=== PATIENT | female | born 1960 | race Caucasian/White ===

== ENCOUNTER → 2018-11-29 07:34 | Outpatient (CLI) | payer BC, SELFPAY ==
--- NOTE | 2018-11-29 | DI.MG.S_ITS ---
BILATERAL DIGITAL SCREENING MAMMOGRAM 3D/2D WITH CAD: 11/29/2018 CLINICAL: Routine screening. Comparison is made to exams dated: 11/08/2014 mammogram - [facility], 09/06/2013 mammogram, and 04/26/2012 mammogram - [facility]. There are scattered fibroglandular elements in both breasts. Current study was also evaluated with a Computer Aided Detection (CAD) system. No significant masses, calcifications, or other findings are seen in either breast. There has been no significant interval change. IMPRESSION: NEGATIVE There is no mammographic evidence of malignancy. A 1 year screening mammogram is recommended. This exam was interpreted at Station ID: [id number]. NOTE: For mammograms, a report in lay terms will be sent to the patient. Approximately 15% of breast malignancies will not be visualized mammographically. In the management of a palpable breast mass, a negative mammogram must not discourage biopsy of a clinically suspicious lesion. Electronically Signed By: Marcello luque/estee:11/29/2018 19:40:13 letter sent: Normal Exam ACR BI-RADS Category 1: Negative 3341F
== END ==
PROVIDERS: PCP Internal Medicine; Visit Provider Internal Medicine
DX: Z12.31 Encounter for screening mammogram for malignant neoplasm of breast (principal)
CPT/HCPCS: 77063; 77067

== ENCOUNTER → 2019-03-13 07:07 | Outpatient (CLI) | payer BC, SELFPAY ==
[2019-03-13 07:56] LABS: Add Manual Diff / Slide Review NO; Basophils Absolute Auto 100 /uL (0-100); Basophils Percent Auto 1.2 % (0-2); Eosinophils Absolute Auto 100 /uL (0-450); Eosinophils Percent Auto 1.5 % (2-4); Hematocrit 45.2 % (36-46); Hemoglobin 15.3 g/dL (12.0-16.0); Lymphocytes Absolute Auto 1600 /uL (1100-4500); Lymphocytes Percent Auto 34.3 % (25-40); Mean Corpuscular HGB Conc 33.9 % (30-36); Mean Corpuscular Hemoglobin 30.1 PG (26-34); Mean Corpuscular Volume 88.7 fL (80-100); Monocytes Absolute Auto 300 /uL (0-900); Monocytes Percent Auto 7.1 % (3-14); Neutrophils Absolute Auto 2700 /uL (1500-7000); Neutrophils Percent Auto 55.9 % (50-75); Platelet Count 280 X10^3/uL (150-400); Red Cell Distribution Width 13.6 % (11.6-14.8); White Blood Cell Count 4.8 X10^3/uL (4.5-11.0)
[2019-03-13 08:01] LABS: Hemoglobin A1C% w Est Avg Glu 5.8 % (4.0-6.0)
[2019-03-13 08:21] LABS: HEMOLYSIS < 15 (0-50); Iron 119 ug/dL (37-170)
[2019-03-13 08:23] LABS: Alanine Aminotransferase 41 IU/L (<35); Albumin 4.4 g/dL (3.5-5.0); Albumin Globulin Ratio 1.7 (1.0-2.8); Alkaline Phosphatase 84 U/L (38-126); Aspartate Aminotransferase 30 IU/L (14-36); Bilirubin Total 0.6 mg/dL (0.2-1.3); Blood Urea Nitrogen 14 mg/dL (7-17); Calcium 9.8 mg/dL (8.4-10.2); Carbon Dioxide 33 mmol/L (22-32); Chloride 102 mmol/L (98-107); Estimated Glomerular Filt Rate 56.6 mL/min (>60); Globulin 2.6 g/dL (1.7-4.1); Glucose 105 mg/dL (80-110); HDL Cholesterol 82 mg/dL (40-60); HEMOLYSIS < 15 (0-50); Potassium 4.7 mmol/L (3.4-5.1); Sodium 141 mmol/L (137-145); Triglycerides 119 mg/dL (35-150)
[2019-03-13 08:32] LABS: Percent Iron Saturation 40 % (15-50); Total Iron Binding Capacity 296 ug/dL (265-497); Transferrin 248 mg/dL (206-381)
[2019-03-13 08:36] LABS: Cholesterol 182 mg/dL (140-199); LDL Cholesterol Calculated 76 mg/dL (<100)
[2019-03-13 08:53] LABS: Thyroid Stimulating Hormone 1.94 uIU/mL (0.47-4.68)
[2019-03-13 09:28] LABS: Folate > 20.0 ng/mL (2.76-20.0); Vitamin B12 852 pg/mL (239-931)
[2019-03-18 07:04] LABS: Vitamin B1 191 nmol/L (78-185)
== END ==
PROVIDERS: Family Provider Internal Medicine; PCP Internal Medicine; Visit Provider Nurse Practitioner Acute Care
DX: E63.9 Nutritional deficiency, unspecified (principal); K90.9 Intestinal malabsorption, unspecified; Z98.84 Bariatric surgery status
CPT/HCPCS: 36415; 80053; 80061; 82306; 82607; 82728; 82746; 83036; 83525; 83540; 83550; 84425; 84443; 85025

== ENCOUNTER → 2019-11-10 08:15 | Outpatient (CLI) | payer BC, SELFPAY ==
[2019-11-10 09:37] LABS: Alanine Aminotransferase 20 IU/L (<35); Albumin 4.1 g/dL (3.5-5.0); Albumin Globulin Ratio 1.6 (1.0-2.8); Alkaline Phosphatase 77 U/L (38-126); Aspartate Aminotransferase 26 IU/L (14-36); BUN Creatinine Ratio 15.8 (6-22); Bilirubin Total 0.6 mg/dL (0.2-1.3); Blood Urea Nitrogen 16 mg/dL (7-17); Calcium 9.2 mg/dL (8.4-10.2); Carbon Dioxide 33 mmol/L (22-32); Chloride 101 mmol/L (98-107); Cholesterol 165 mg/dL (140-199); Estimated Glomerular Filt Rate 55.9 mL/min (>60); Globulin 2.6 g/dL (1.7-4.1); Glucose 93 mg/dL (80-110); HDL Cholesterol 70 mg/dL (40-60); HEMOLYSIS < 15 (0-50); LDL Cholesterol Calculated 77 mg/dL (<100); Sodium 137 mmol/L (137-145); Total Protein 6.7 g/dL (6.3-8.2); Triglycerides 92 mg/dL (35-150)
[2019-11-10 09:39] LABS: Hemoglobin A1C% w Est Avg Glu 6.2 % (4.0-6.0)
[2019-11-10 10:19] LABS: TSH w/ Reflex to FT4 1.29 uIU/mL (0.47-4.68)
[2019-11-10 10:27] LABS: Creatinine Urine Random 205.2 mg/dL
[2019-11-10 10:31] LABS: Microalbumi Creatinin Ratio Ur 4.3 ug/mg CR (<30); Microalbumin Urine Random 0.9 mg/dL (0-1.6)
== END ==
PROVIDERS: Family Provider Internal Medicine; PCP Family Medicine; Referring Provider Registered Nurse; Visit Provider Registered Nurse
DX: E11.9 Type 2 diabetes mellitus without complications (principal); E78.5 Hyperlipidemia, unspecified; E03.9 Hypothyroidism, unspecified
CPT/HCPCS: 36415; 80053; 80061; 82043; 82570; 83036; 84443

== ENCOUNTER → 2019-12-08 07:53 | Outpatient (CLI) | payer BC, SELFPAY ==
--- NOTE | 2019-12-08 | DI.MG.S_ITS ---
BILATERAL DIGITAL SCREENING MAMMOGRAM 3D/2D WITH CAD: 12/08/2019 CLINICAL: Routine screening. Comparison is made to exams dated: 11/29/2018 mammogram, 11/08/2014 mammogram - [facility], and 09/06/2013 mammogram - [facility]. There are scattered fibroglandular elements in both breasts. Current study was also evaluated with a Computer Aided Detection (CAD) system. No significant masses, calcifications, or other findings are seen in either breast. There has been no significant interval change. IMPRESSION: NEGATIVE There is no mammographic evidence of malignancy. A 1 year screening mammogram is recommended. This exam was interpreted at Station ID: [id number]. NOTE: For mammograms, a report in lay terms will be sent to the patient. Approximately 15% of breast malignancies will not be visualized mammographically. In the management of a palpable breast mass, a negative mammogram must not discourage biopsy of a clinically suspicious lesion. Electronically Signed By: Silviano ramirez/estee:12/10/2019 07:24:19 letter sent: Normal Exam ACR BI-RADS Category 1: Negative 3341F
== END ==
PROVIDERS: Family Provider Internal Medicine; PCP Family Medicine; Referring Provider Family Medicine; Visit Provider Family Medicine
DX: Z12.31 Encounter for screening mammogram for malignant neoplasm of breast (principal)
CPT/HCPCS: 77063; 77067

== ENCOUNTER → 2020-05-28 12:09 | Outpatient (CLI) | payer OTHER, SELFPAY ==
[2020-05-28] MEDS: COVID-19 VACC, Ad26(JANSSEN)/PF 0.5 ML IM (12:32)
== END ==
PROVIDERS: Family Provider Internal Medicine; PCP Family Medicine; Visit Provider Internal Medicine
DX: Z23 Encounter for immunization (principal)
CPT/HCPCS: 0031A; 91303

== ENCOUNTER → 2020-11-05 07:48 | Outpatient (CLI) | payer OTHER, SELFPAY ==
[2020-11-05 08:39] LABS: Alanine Aminotransferase 20 IU/L (<35); Albumin 4.1 g/dL (3.5-5.0); Albumin Globulin Ratio 1.4 (1.0-2.8); Alkaline Phosphatase 101 U/L (38-126); Aspartate Aminotransferase 26 IU/L (14-36); BUN Creatinine Ratio 16.5 (6-22); Bilirubin Total 0.5 mg/dL (0.2-1.3); Blood Urea Nitrogen 16 mg/dL (7-17); Calcium 9.5 mg/dL (8.4-10.2); Carbon Dioxide 31 mmol/L (22-32); Chloride 104 mmol/L (98-107); Cholesterol 205 mg/dL (140-199); Estimated Glomerular Filt Rate 58.4 mL/min (>60); Globulin 2.9 g/dL (1.7-4.1); Glucose 115 mg/dL (80-110); HDL Cholesterol 78 mg/dL (40-60); HEMOLYSIS < 15 (0-50); LDL Cholesterol Calculated 92 mg/dL (<100); Potassium 4.5 mmol/L (3.4-5.1); Sodium 139 mmol/L (137-145); Triglycerides 174 mg/dL (35-150)
[2020-11-05 08:45] LABS: Hemoglobin A1C% w Est Avg Glu 6.1 % (4.0-6.0)
[2020-11-05 09:04] LABS: Creatinine Urine Random 200.9 mg/dL
[2020-11-05 09:08] LABS: Microalbumi Creatinin Ratio Ur 6.4 ug/mg CR (<30); Microalbumin Urine Random 1.3 mg/dL (0-1.6)
[2020-11-05 09:33] LABS: Thyroid Stimulating Hormone 1.93 uIU/mL (0.47-4.68)
== END ==
PROVIDERS: Family Provider Internal Medicine; PCP Family Medicine; Referring Provider Registered Nurse; Visit Provider Registered Nurse
DX: E03.9 Hypothyroidism, unspecified (principal); E11.9 Type 2 diabetes mellitus without complications; E78.5 Hyperlipidemia, unspecified; N18.30 Chronic kidney disease, stage 3 unspecified
CPT/HCPCS: 36415; 80053; 80061; 82043; 82570; 83036; 84443

== ENCOUNTER → 2020-11-20 15:45 | Outpatient (CLI) | payer OTHER, SELFPAY ==
--- NOTE | 2020-11-20 17:25 | DIAB.MNT ---
Initial Diabetes Medical Nutrition Therapy Assessment Name: Kimberly Bates Date: 11/20/20 Time: 400-172p Dx: Type II Diabetes Provider: Brenna Koroma Preferred Learning Style: watching, hands-on/doing PMH: GERD, CKD III, Acquired hypothyroidism, HLD, T2DM, sleeve weight loss elliott Harris reports PMH of T2DM for 20 years. No DM medications. h/o SE with Metformin. Recent HgA1c indicates well managed BG, 6.1%. Elevated cholesterol last labs, but high HDL as well. LDL has increased over last few labs. Reports elevated blood pressure recently, 130-150 over 80s. Also decline in GFR in recent years, though improved per last labs. Reports she is concerned about increase in cholesterol and does not want to start on a statin. States she would like more information about nutrition for kidneys and heart health. Reports +20# over the last year and a half with covid. Seems mostly related to more snacks in the house, less cooking, and less physical activity. H/o sleeve in Feb 2018 which resulted originally in a 116# loss, regain 20#. States finances are a concern in terms of affording healthy foods. States she finds healthy foods are more expensive. Diet Recall: 530a: coffee with milk and hersheys keli 930a: atkins protein bar 1230p: 1/3c [employer] crab salad with rice seasoning and 10 grapes 3p: 3/4c smart pop and 1 small cucumber 530-7p: mod pizza 1.5 slices Beverages: 32oz water, 2c coffee Eating out: 1-2 x per week Anthropometrics Ht: 68 Wt: 205# reported (preferred reported weight 175-185#) Physical Activity: Prior to pandemic, was walking 6 days per week + other activities (kayaking, gardening). One barrier was losing her walking partner to a busy schedule and friend's family obligations. Has restarted walking since friend retired recently. Does not like the gym. Does not want to walk once the sun goes down. Daughter bought her resistance bands. Diabetes Medications: None; taking supplements for sleeve Pertinent Labs: HgA1c: 6.1% Total cholesterol: 205 H LDL: 92 HDL: 78 Self-Monitoring Blood Glucose: Normally checks 1-2 x per month. Checked more often prior to this visit. All in goal ranging from 98-124 mg/dL fasting. Nutrition Rx: Sodium <2300 mg daily ; fiber: 25-40g daily ; fluids: 48-64oz daily Nutrition Diagnosis: - Inadequate fiber intake r/t nutrition knowledge deficit and low carb diet aeb diet recall and pt report - inadequate fluid intake r/t nutrition knowledge deficit aeb diet recall and pt report - Excessive sodium intake r/t eating out and broth choices aeb diet recall Intervention: This participant was very receptive. Provided appropriate educational handouts. Discussed the following topics: Completed intake assessment. Discussed barriers to care. HgA1c, its correlation to blood glucose numbers, and rationale for goal Heart health nutrition: impact of fiber on cholesterol, fat types, recs on fiber, sodium impact on BP Kidney health nutrition: fluid recs, sodium recs and impact on BP Role of physical activity and plan to sustain/increase Created SMART goals for patient self-care and success. Goals: - Choose low sodium broth - Walk twice per week with friend 75-90 mins ea - Try resistance bands 2 x per week - Increase water to 3 bottles per day Follow-up: CASSANDRA NIXON follow-up in 1 month Courtney Ambrocio RDN, EDUARES Certified Diabetes Care and Water Resources Business Segment Leader P: [phone] Thank you for this referral
== END ==
PROVIDERS: Family Provider Internal Medicine; PCP Family Medicine; Referring Provider Registered Nurse; Visit Provider Registered Nurse
DX: E11.9 Type 2 diabetes mellitus without complications (principal); K21.9 Gastro-esophageal reflux disease without esophagitis; N18.30 Chronic kidney disease, stage 3 unspecified; E03.9 Hypothyroidism, unspecified; E78.5 Hyperlipidemia, unspecified; Z79.84 Long term (current) use of oral hypoglycemic drugs; Z90.3 Acquired absence of stomach [part of]; Z71.3 Dietary counseling and surveillance; Z68.31 Body mass index [BMI] 31.0-31.9, adult
CPT/HCPCS: 97802

== ENCOUNTER → 2020-12-09 16:12 | Outpatient (CLI) | payer OTHER, SELFPAY ==
--- NOTE | 2020-12-09 | DI.MG.S_ITS ---
BILATERAL DIGITAL SCREENING MAMMOGRAM 3D/2D WITH CAD: 12/09/2020 CLINICAL: Routine screening. Comparison is made to exams dated: 12/08/2019 mammogram, 11/29/2018 mammogram, and 11/08/2014 mammogram - [facility]. There are scattered fibroglandular elements in both breasts. Current study was also evaluated with a Computer Aided Detection (CAD) system. No significant masses, calcifications, or other findings are seen in either breast. There has been no significant interval change. IMPRESSION: NEGATIVE There is no mammographic evidence of malignancy. A 1 year screening mammogram is recommended. This exam was interpreted at Station ID: [id number]. NOTE: For mammograms, a report in lay terms will be sent to the patient. Approximately 15% of breast malignancies will not be visualized mammographically. In the management of a palpable breast mass, a negative mammogram must not discourage biopsy of a clinically suspicious lesion. Electronically Signed By: Diego Doty M.D., jr/estee:12/09/2020 16:41:17 letter sent: Normal Exam ACR BI-RADS Category 1: Negative 3341F
== END ==
PROVIDERS: Family Provider Internal Medicine; PCP Family Medicine; Referring Provider Family Medicine; Visit Provider Family Medicine
DX: Z12.31 Encounter for screening mammogram for malignant neoplasm of breast (principal)
CPT/HCPCS: 77063; 77067

== ENCOUNTER → 2020-12-24 15:20 | Outpatient (CLI) | payer OTHER, SELFPAY ==
--- NOTE | 2020-12-24 16:44 | DIAB.MNTFU ---
Follow-up Diabetes Medical Nutrition Therapy Name: Kimberly Bates Date: 12/24/20 Time: 330-430p Dx: Type II Diabetes Provider: Brenna Koroma Preferred Learning Style: watching, hands-on/doing PMH: GERD, CKD III, Acquired hypothyroidism, HLD, T2DM x 20 years (no DM meds), sleeve weight loss sx States she is here mostly for accountability. Working on weight loss to help with DM, HTN, and cholesterol. Has been working on increasing fiber intake with ground flax. Also working on more water. Diet is low in carb (often <100g CHO). This tends to lead to high protein or fat intake and low fiber intake. In general, Kimberly's portions are small. Reports some MyFitnesspal tracking, which indicated low protein (<70g), 20g fiber, and some higher fat intake. Sodium was estimated <2300mg per her report. Has been choosing lower sodium options. Endorses 2 vegetables and 1-2 fruits per day. Today she tells me she had two wins. 1. She lost 4# and 2. She fits into a shirt from the Diet recall: 530:Coffee and milk 10a:egg bite with spinach Or atkins bar Or yogurt with fruit and flax 230p: Cheese, vegetables and yogurt dip Or left over quesadilla x 1-2 pieces 6p: leftovers or baked chicken thighs x 1-2 Eating out: 1-2 x per week, leftovers last several meals Beverages: 40oz water, 2c coffee, 1c milk Anthropometrics Ht: 68 Wt: 201# reported (preferred reported weight 175-185#) Last wt: 205# reported Physical Activity: Prior to pandemic, was walking 6 days per week + other activities (kayaking, gardening). Now hiking one day per week with her friend for 60-90 mins. Walking on her own one day per week. Ranging 10,000-20,000 steps per day. Implemented resistance band training for UE and LE with help of her daughter twice per week. Diabetes Medications: None; taking supplements for sleeve Pertinent Labs: HgA1c: 6.1% Total cholesterol: 205 H LDL: 92 HDL: 78 Self-Monitoring Blood Glucose: Normally checks 1-2 x per month. Recent fastings are 95-122 mg/dL, in goal. States she likes to be under 100 mg/dL. Has questions about why a reading may be completely different when testing a different finger at the same time. Nutrition Rx: Sodium <2300 mg daily ; fiber: 25-40g daily ; fluids: 48-64oz daily Nutrition Diagnosis: - Inadequate fiber intake r/t nutrition knowledge deficit and low carb diet aeb diet recall and pt report- in progress/improved - inadequate fluid intake r/t nutrition knowledge deficit aeb diet recall and pt report- improved - Excessive sodium intake r/t eating out and broth choices aeb diet recall- improved - Excessive fat intake r/t lower protein and fat intake aeb tracking char- new Intervention: This participant was very receptive. Provided appropriate educational handouts. Discussed the following topics: Impact of changes to her weight how she is feeling about the sustainability of her phys activity program currently set point theory on how weight can be difficult, not impossible, to change. Tools to continue lifestyle changes. impact of activity, fat, and sodium on heart health sodium in food choices reported fibers recs variability of meters increasing lean protein intake wins Goals: - Choose low sodium broth- met - Walk twice per week with friend 75-90 mins ea- met - Try resistance bands 2 x per week- met - Increase water to 3 bottles per day- improved - Continue walking 2 x per week - Continue resistance exercises 2 x per week - Slowly increase flax intake (but stay hydrated) Follow-up: CASSANDRA NIXON follow-up in 1 month Courtney Ambrocio RDN, TIFFANI Certified Diabetes Care and Structural Layout Worker P: [phone] Thank you for this referral
== END ==
PROVIDERS: Family Provider Internal Medicine; PCP Family Medicine; Referring Provider Registered Nurse; Visit Provider Registered Nurse
DX: E11.9 Type 2 diabetes mellitus without complications (principal); I10 Essential (primary) hypertension; E78.5 Hyperlipidemia, unspecified; Z71.3 Dietary counseling and surveillance
CPT/HCPCS: 97803

== ENCOUNTER → 2021-01-21 15:16 | Outpatient (CLI) | payer OTHER, SELFPAY ==
--- NOTE | 2021-01-22 17:09 | DIAB.MNTFU ---
Follow-up Diabetes Medical Nutrition Therapy Name: Kimberly Bates Date: 01/21/21 Time: 330-425p Dx: Type II Diabetes Provider: Brenna Koroma PMH: GERD, CKD III, Acquired hypothyroidism, HLD, T2DM x 20 years (no DM meds), sleeve weight loss sx States she is here mostly for accountability. Working on weight loss to help with DM, HTN, and cholesterol. Reports her son was just and she spent a week out of town. This resulted in mostly eating out. States she tried to make informed choices, ie eggs, yogurt, fruit, salads, fish. Overall, seems to have done well. Has increased fiber with success, though reports some constipation a few times since last visit. Tries to increase water and use less flaxseed when that occurs. Easily remedied per her report. Continues eating three times per day, staying well hydrated, conscious of Na intake. Continues tracking food intake. Anthropometrics Ht: 68 Wt: 200# today Last wt: 201# Physical Activity: Walking 60 min twice per week. getting 10,000 steps per day. Hiking on weekends. Resistance bands with daughter via zoom twice per week. Does not feel proficient in exercises, but continues trying. Diabetes Medications: None; taking supplements for sleeve Pertinent Labs: HgA1c: 6.1% Total cholesterol: 205 H LDL: 92 HDL: 78 Self-Monitoring Blood Glucose: Normally checks 1-2 x per month. Fastings <130 mg/dL. She prefers them <100 mg/dL. Nutrition Rx: Sodium <2300 mg daily ; fiber: 25-40g daily ; fluids: 48-64oz daily; plate method Nutrition Diagnosis: - Inadequate fiber intake r/t nutrition knowledge deficit and low carb diet aeb diet recall and pt report- improved - Excessive sodium intake r/t eating out and broth choices aeb diet recall- improved - Excessive fat intake r/t lower protein and fat intake aeb tracking char- in progress Intervention: This participant was very receptive. Provided appropriate educational handouts. Discussed the following topics: Eating out and aiming to sustaining weight over vacations and holidays as a win BM and fiber, fluids, phys activity Snack ideas Resistance band form/ideas Goals: - Continue walking 2 x per week- met - Continue resistance exercises 2 x per week- met - Slowly increase flax intake (but stay hydrated)- met Follow-up: CASSANDRA NIXON follow-up in March 2021 Courtney Ambrocio RDN, [facility] Certified Diabetes Care and Associate Professor Of History P: [phone] Thank you for this referral
== END ==
PROVIDERS: Family Provider Internal Medicine; PCP Family Medicine; Referring Provider Family Medicine; Visit Provider Family Medicine
DX: E11.9 Type 2 diabetes mellitus without complications (principal); I10 Essential (primary) hypertension; Z71.3 Dietary counseling and surveillance
CPT/HCPCS: 97803

== ENCOUNTER → 2021-04-22 15:13 | Outpatient (CLI) | payer OTHER, SELFPAY ==
--- NOTE | 2021-04-23 10:14 | DIAB.MNTFU ---
Follow-up Diabetes Medical Nutrition Therapy Assessment Name: Kimberly Bates Date: 04/22/21 Time: 325-415p Dx: Type II Diabetes Kimberly presents today for follow-up. States her blood sugars cont in goal. She cont to work on weight loss. Endorses feeling as though her nutrition is out of wack. Reports higher intake of chips more recently. Still counting kcals and watching food portions. Made efforts in reducing Na, ie low Na nuts. Slight changes in the scale, but feeling as though her pants are tight. Having difficulty with sleep recently. d/c'd coffee after noon. Often will wake and if cannot sleep, watches TV. Friends suggesting melatonin, but she is weary of any sleep assistance in pill form. Feeling isolated with covid, though does have dinner with friends and sees [employer] [facility] regularly. Due for new labs with PCP, but states insurance will not cover them-- financial concerns. Reports speaking with PCP office about this previously but no resolution at the time. Anthropometrics: Wt: 202# reported Weight history: 200# reported last visit Physical Activity: 10,000 steps daily. hiking on weekends. Plans for half marathon in May. Plans to hike [employer] one weekend. Interested in yoga, but she has never done it before. Feels uncomfortable going to a studio. Self-Monitoring Blood Glucose: Reports 98-105 FBG, in range. Diabetes Medications: None Pertinent Labs: 10/2020 GFR: 58 L HgA1c: 6.1% T H Cholesterol: 205 H HDL: 78 LDL: 92 Nutrition Rx: Sodium <2300 mg daily ; fiber: 25-40g daily ; fluids: 48-64oz daily; plate method Nutrition Diagnosis: - Predicted excessive sat fat/sodium intake potentially r/t increase in chip intake aeb pt report Intervention: This participant was very receptive. Provided appropriate educational handouts. Discussed the following topics: Nutrition recs and current intake grocery store tips and psychology Impact mary kate has on feeling isolated, current strategies to avoid feeling alone Link between sleep, nutrition, weight, and BG Strategies for relaxation Online resources for yoga Plan for PCP visit and lipid panel Created SMART goals for patient self-care and success. Goals: Call PCP office to discuss barrier and financial concerns Try online yoga Try relaxation tech discussed, muscle relaxation and breathing Follow-up: CASSANDRA NIXON follow-up in 6-8 weeks Courtney Ambrocio RDN, TIFFANI Certified Diabetes Care and Art Dealer P: [phone] Thank you for this referral
== END ==
PROVIDERS: Family Provider Internal Medicine; PCP Family Medicine; Referring Provider Family Medicine; Visit Provider Family Medicine
DX: E11.9 Type 2 diabetes mellitus without complications (principal)
CPT/HCPCS: 97803

== ENCOUNTER → 2021-07-01 15:20 | Outpatient (CLI) | payer OTHER, SELFPAY ==
--- NOTE | 2021-07-02 13:04 | DIAB.MNTFU ---
Follow-up Diabetes Medical Nutrition Therapy Assessment Name: Kimberly Bates Date: 07/01/21 Time: 330-440p Dx: Type II Diabetes, weight management Rupa presents today for nutrition follow-up. States she has had a very tough time lately with mental health. This month is the anniversary of her dad's passing, a friend's passing, and currently her brother has cancer. To manage mental health, she has been gardening q morning, which she feels helps. Nutrition seems to be going well. She has been trying new recipes, ie breakfast cookies, chicken soup. Fluids 40-50oz + coffee. Sleep has improved. Anthropometrics: Wt: 202# no change per report Physical Activity: Gardening daily. Hiking with friend 2x per week Self-Monitoring Blood Glucose: Cont in goal. FBG 90-106 mg/dL Diabetes Medications: None Pertinent Labs: Due for labs, but finances are a concern 10/2020 GFR: 58 L HgA1c: 6.1% T H Cholesterol: 205 H HDL: 78 LDL: 92 Nutrition Rx: Sodium <2300 mg daily ; fiber: 25-40g daily ; fluids: 48-64oz daily; plate method Nutrition Diagnosis: - Predicted excessive sat fat/sodium intake potentially r/t increase in chip intake aeb pt report- improved Intervention: This participant was very receptive. Provided appropriate educational handouts. Discussed the following topics: Physical activity plan and progress Mental health and nutrition and phys activity Recent BG and goal Fluid goal and CKD Sodium intake and recs Barriers to new labs and plan Created SMART goals for patient self-care and success. Goals: Call PCP office to discuss barrier and financial concerns- in progress Try online yoga- not met Try relaxation tech discussed, muscle relaxation and breathing- not met See new PCP and discuss getting new labs- new Follow-up: CASSANDRA NIXON follow-up in 2 months per her request Courtney Ambrocio RDN, TIFFANI Certified Diabetes Care and Screw Driver Operator P: [phone] Thank you for this referral
== END ==
PROVIDERS: Family Provider Internal Medicine; PCP Family Medicine; Referring Provider Family Medicine; Visit Provider Family Medicine
DX: E11.9 Type 2 diabetes mellitus without complications (principal); Z71.3 Dietary counseling and surveillance
CPT/HCPCS: 97803

== ENCOUNTER → 2021-10-21 09:23 | Outpatient (CLI) | payer OTHER, SELFPAY ==
--- NOTE | 2021-10-22 17:49 | DIAB.MNTFU ---
Follow-up Diabetes Medical Nutrition Therapy Assessment Name: Kimberly Bates Date: 10/22/21 Time: 177-0112g Dx: Type II Diabetes Rupa presents for T2DM follow-up. States she has been perfecting her breakfast cookie recipe, fruit, nuts, PB, and now added flax for additional fiber intake. She has also recently purchased an air fryer, however she is having difficulty with tasting and smelling since being ill in August. Tested negative for Covid but lost senses. Interested in some visually appealing recipes with good texture since she is unable to smell or taste well. Has been focusing on increasing water intake. Worries about kidney health. Current intake: 24-30oz water and 24-30oz tea unsweet Has not completed new labs due to financial concerns. Plans to see provider's office today to discuss. Anthropometrics: Wt: 196# reported Weight history: last wt reported 202#; wt loss may be r/t August illness and loss of taste. Physical Activity: hiking twice per week, walking twice per week, more kayaking recently. Self-Monitoring Blood Glucose: All FBG in goal with 7 day avg at 96 mg/dL. Recent readings: 96, 108, 112, 104, 99, 107, 100, 95, 112, 107, 103 Diabetes Medications: None Pertinent Labs: Due for labs, but finances are a concern 10/2020 GFR: 58 L HgA1c: 6.1% T H Cholesterol: 205 H HDL: 78 LDL: 92 Nutrition Rx: Sodium <2300 mg daily ; fiber: 25-40g daily ; fluids: 48-64oz daily; plate method Nutrition Diagnosis: - Nutrition and food related knowledge deficit r/t needing additional ideas for lower carb meals that are appealing aeb pt report - Nutrition and food related knowledge deficit r/t kidney disease nutrition education deficits aeb pt report Intervention: This participant was very receptive. Provided appropriate educational handouts. Discussed the following topics: Blood sugar review Discussed a few recipe ideas, ie summer rolls Reviewed CKD nutrition in brief and labs correlating Fluid recs Physical activity plan and progress Created SMART goals for patient self-care and success. Goals: See new PCP and discuss getting new labs- in progress Try summer rolls- new Try air fryer recipes - new Aim for 45-60oz water, +tea- new Follow-up: RDN CDCES follow-up in 2 months per pt request Courtney Ambrocio RDN, TIFFANI Certified Diabetes Care and Cripple Worker P: [phone] Thank you for this referral
== END ==
PROVIDERS: Family Provider Internal Medicine; PCP Family Medicine; Referring Provider Family Medicine; Visit Provider Family Medicine
DX: E11.9 Type 2 diabetes mellitus without complications (principal)
CPT/HCPCS: 97803

== ENCOUNTER → 2021-12-17 15:57 | Outpatient (CLI) | payer OTHER, SELFPAY ==
--- NOTE | 2021-12-17 15:58 | DI.MG.S_ITS ---
BILATERAL DIGITAL SCREENING MAMMOGRAM 3D/2D WITH CAD: 12/17/2021 CLINICAL: Routine screening. Comparison is made to exams dated: 12/09/2020 mammogram, 12/08/2019 mammogram, and 11/29/2018 mammogram - [facility]. There are scattered areas of fibroglandular density in both breasts (category b / 25%-50% glandular tissue). Current study was also evaluated with a Computer Aided Detection (CAD) system. No significant masses, calcifications, or other findings are seen in either breast. There has been no significant interval change. IMPRESSION: NEGATIVE There is no mammographic evidence of malignancy. A 1 year screening mammogram is recommended. Based on the Tyrer Cuzick model (a risk assessment model) the patient's lifetime risk is 9.6% and her 10 year risk is 4.2%. According to the ACR, ACS, and NCCN guidelines, an annual breast MRI exam along with mammogram is recommended if the patient's lifetime risk is 20% or greater. This exam was interpreted at Station ID: [id number]. NOTE: For mammograms, a report in lay terms will be sent to the patient. Approximately 15% of breast malignancies will not be visualized mammographically. In the management of a palpable breast mass, a negative mammogram must not discourage biopsy of a clinically suspicious lesion. Electronically Signed By: Luis Daniel escobar/estee:12/17/2021 16:27:42 letter sent: Normal Exam ACR BI-RADS Category 1: Negative 3341F
== END ==
PROVIDERS: Family Provider Internal Medicine; PCP Family Medicine; Referring Provider Family Medicine; Visit Provider Family Medicine
DX: Z12.31 Encounter for screening mammogram for malignant neoplasm of breast (principal)
CPT/HCPCS: 77063; 77067

== ENCOUNTER → 2022-01-08 07:23 | Outpatient (CLI) | payer OTHER, SELFPAY ==
[2022-01-08 07:42] LABS: Add Manual Diff / Slide Review NO; Basophils Absolute Auto 0 /uL (0-100); Basophils Percent Auto 1.1 % (0-2); Eosinophils Absolute Auto 100 /uL (0-450); Eosinophils Percent Auto 2.2 % (2-4); Hematocrit 43.4 % (36-46); Lymphocytes Absolute Auto 1600 /uL (1100-4500); Lymphocytes Percent Auto 38.6 % (25-40); Mean Corpuscular HGB Conc 32.2 % (30-36); Mean Corpuscular Hemoglobin 28.7 PG (26-34); Monocytes Absolute Auto 300 /uL (0-900); Monocytes Percent Auto 8.1 % (3-14); Neutrophils Absolute Auto 2100 /uL (1500-7000); Platelet Count 282 X10^3/uL (150-400); Red Blood Cell Count 4.88 X10^6/uL (4.0-5.2); Red Cell Distribution Width 13.8 % (11.6-14.8); White Blood Cell Count 4.1 X10^3/uL (4.5-11.0)
[2022-01-08 07:55] LABS: Hemoglobin A1C% w Est Avg Glu 6.2 % (4.0-6.0)
[2022-01-08 08:10] LABS: Alanine Aminotransferase 24 IU/L (<35); Albumin 4.1 g/dL (3.5-5.0); Albumin Globulin Ratio 1.4 (1.0-2.8); Alkaline Phosphatase 91 U/L (38-126); Aspartate Aminotransferase 30 IU/L (14-36); BUN Creatinine Ratio 13.8 (6-22); Bilirubin Total 0.5 mg/dL (0.2-1.3); Blood Urea Nitrogen 13 mg/dL (7-17); Calcium 8.9 mg/dL (8.4-10.2); Carbon Dioxide 31 mmol/L (22-32); Chloride 102 mmol/L (98-107); Cholesterol 176 mg/dL (140-199); Estimated Glomerular Filt Rate > 60 mL/min (>60); Globulin 2.9 g/dL (1.7-4.1); Glucose 110 mg/dL (80-110); HDL Cholesterol 69 mg/dL (40-60); HEMOLYSIS 16 (0-50); LDL Cholesterol Calculated 88 mg/dL (<100); Potassium 4.1 mmol/L (3.4-5.1); Sodium 139 mmol/L (137-145); Triglycerides 96 mg/dL (35-150)
[2022-01-08 09:22] LABS: Free T3, Triiodothyronine Free 3.43 pg/mL (2.77-5.27); Free T4, Direct Thyroxine 1.14 ng/dL (0.78-2.19)
[2022-01-08 09:36] LABS: Thyroid Stimulating Hormone 2.07 uIU/mL (0.47-4.68)
== END ==
PROVIDERS: Family Provider Internal Medicine; PCP Family Medicine; Referring Provider Family Medicine; Visit Provider Family Medicine
DX: E03.9 Hypothyroidism, unspecified (principal); E11.9 Type 2 diabetes mellitus without complications; E78.2 Mixed hyperlipidemia
CPT/HCPCS: 36415; 80053; 80061; 83036; 84439; 84443; 84481; 85025

== ENCOUNTER → 2022-06-24 11:00 | Outpatient (CLI) | payer OTHER, SELFPAY ==
[2022-06-25 13:37] LABS: Fecal Immunochemical Test Negative (Negative)
== END ==
PROVIDERS: Family Provider Internal Medicine; PCP Family Medicine; Referring Provider Family Medicine; Visit Provider Family Medicine
DX: Z12.11 Encounter for screening for malignant neoplasm of colon (principal)
CPT/HCPCS: 82274

== ENCOUNTER → 2022-12-20 07:38 | Outpatient (CLI) | payer OTHER, SELFPAY ==
--- NOTE | 2022-12-20 | DI.MG.S_ITS ---
BILATERAL DIGITAL SCREENING MAMMOGRAM 3D/2D WITH CAD: 12/20/2022 CLINICAL: Routine screening. Comparison is made to exams dated: 12/17/2021 mammogram, 12/09/2020 mammogram, and 12/08/2019 mammogram - [facility]. There are scattered areas of fibroglandular density in both breasts (category b / 25%-50% glandular tissue). Current study was also evaluated with a Computer Aided Detection (CAD) system. No significant masses, calcifications, or other findings are seen in either breast. There has been no significant interval change. IMPRESSION: NEGATIVE There is no mammographic evidence of malignancy. A 1 year screening mammogram is recommended. Based on the Tyrer Cuzick model (a risk assessment model) the patient's lifetime risk is 9.3% and her 10 year risk is 4.2%. According to the ACR, ACS, and NCCN guidelines, an annual breast MRI exam along with mammogram is recommended if the patient's lifetime risk is 20% or greater. This exam was interpreted at Station ID: [id number]. NOTE: For mammograms, a report in lay terms will be sent to the patient. Approximately 15% of breast malignancies will not be visualized mammographically. In the management of a palpable breast mass, a negative mammogram must not discourage biopsy of a clinically suspicious lesion. Electronically Signed By: Joel chavis/estee:12/20/2022 10:03:57 letter sent: Normal Exam ACR BI-RADS Category 1: Negative 3341F
== END ==
PROVIDERS: Family Provider Internal Medicine; PCP Family Medicine; Referring Provider Family Medicine; Visit Provider Family Medicine
DX: Z12.31 Encounter for screening mammogram for malignant neoplasm of breast (principal)
CPT/HCPCS: 77063; 77067

== ENCOUNTER → 2022-12-25 08:04 | Outpatient (CLI) | payer OTHER, SELFPAY ==
[2022-12-25 08:28] LABS: Add Manual Diff / Slide Review NO; Basophils Absolute Auto 100 /uL (0-100); Basophils Percent Auto 1.3 % (0-2); Eosinophils Absolute Auto 100 /uL (0-450); Hematocrit 41.5 % (36-46); Lymphocytes Absolute Auto 1500 /uL (1100-4500); Lymphocytes Percent Auto 36.8 % (25-40); Mean Corpuscular HGB Conc 33.6 % (30-36); Mean Corpuscular Hemoglobin 30.1 PG (26-34); Mean Corpuscular Volume 89.6 fL (80-100); Monocytes Absolute Auto 300 /uL (0-900); Monocytes Percent Auto 8.1 % (3-14); Neutrophils Absolute Auto 2000 /uL (1500-7000); Neutrophils Percent Auto 50.8 % (50-75); Platelet Count 273 X10^3/uL (150-400); Red Blood Cell Count 4.64 X10^6/uL (4.0-5.2); Red Cell Distribution Width 14.1 % (11.6-14.8)
[2022-12-25 08:33] LABS: Hemoglobin A1C% w Est Avg Glu 6.1 % (4.0-6.0)
[2022-12-25 08:39] LABS: Alanine Aminotransferase 21 IU/L (<35); Albumin Globulin Ratio 1.4 (1.0-2.8); Alkaline Phosphatase 89 U/L (38-126); Aspartate Aminotransferase 25 IU/L (14-36); BUN Creatinine Ratio 18.3 (6-22); Bilirubin Total 0.5 mg/dL (0.2-1.3); Blood Urea Nitrogen 19 mg/dL (7-17); Calcium 9.1 mg/dL (8.4-10.2); Carbon Dioxide 28 mmol/L (22-32); Chloride 103 mmol/L (98-107); Cholesterol 190 mg/dL (140-199); Estimated Glomerular Filt Rate > 60 mL/min (>60); Globulin 2.9 g/dL (1.7-4.1); Glucose 115 mg/dL (80-110); HDL Cholesterol 78 mg/dL (40-60); HEMOLYSIS < 15 (0-50); LDL Cholesterol Calculated 92 mg/dL (<100); Sodium 138 mmol/L (137-145); Total Protein 6.9 g/dL (6.3-8.2); Triglycerides 98 mg/dL (35-150)
[2022-12-25 09:09] LABS: TSH w/ Reflex to FT4 1.45 uIU/mL (0.47-4.68)
[2022-12-25 09:18] LABS: Creatinine Urine Random 219.6 mg/dL
[2022-12-25 09:22] LABS: Microalbumin Urine Random 2.2 mg/dL (0-1.6)
== END ==
PROVIDERS: Family Provider Internal Medicine; PCP Family Medicine; Referring Provider Family Medicine; Visit Provider Family Medicine
DX: E78.2 Mixed hyperlipidemia (principal); E11.9 Type 2 diabetes mellitus without complications; E03.9 Hypothyroidism, unspecified; N18.31 Chronic kidney disease, stage 3a
CPT/HCPCS: 36415; 80053; 80061; 82043; 82570; 83036; 84443; 85025

== ENCOUNTER → 2023-03-30 15:07 | Outpatient (CLI) | payer OTHER, SELFPAY ==
--- NOTE | 2023-03-30 15:10 | DI.RAD.S_ITS ---
Bone Density Report Name: DEEDEE COOK Age: 63 Sex: Female Ethnicity: White Date of : 1960 Indication: postmenopausal; screening for osteoporosis; Referring Provider: SHWETA SHIN Study: Bone densitometry was performed. Exam Date: March 30, 2023 Accession number: [id number] Bone Density: Region BMD T-score Z-score Classification AP Spine(L1, L2, L4) 1.134 0.9 2.6 Normal Femoral Neck (Left) 0.764 -0.8 0.7 Normal Total Hip (Left) 0.854 -0.7 0.4 Normal Femoral Neck (Right) 0.864 0.1 1.6 Normal Total Hip (Right) 0.945 0.0 1.2 Normal Total Hip Mean 0.899 -0.4 0.8 Normal World Health Organization criteria for BMD impression classify patients as: Normal (T-score at or above -1.0), Osteopenia (T-score between -1.0 and -2.5), or Osteoporosis (T-score at or below -2.5). 10-year Fracture Risk: FRAX not reported because: All T-scores for Spine Total, Hip Total, Femoral Neck at or above -1.0 Impression: The patient has normal bone mass. Discussion: BONE DENSITY IS ABOVE THE MINIMUM DESIRABLE LEVEL AT ALL SKELETAL SITES TESTED. This patient's bone mineral density is above the minimum desirable level (T-score -1.0 or better) at all sites measured. The patient should follow a healthful lifestyle (good nutrition with adequate calcium and vitamin D, and appropriate weight-bearing exercise). Follow-Up: Consider repeating this study in 5 years or sooner if there is some new clinical indication. Reported by: JIMMY HARDEN MD on 03/30/2023 4:19:00 PM.
== END ==
PROVIDERS: Family Provider Internal Medicine; PCP Family Medicine; Referring Provider Family Medicine; Visit Provider Family Medicine
DX: Z13.820 Encounter for screening for osteoporosis (principal); Z78.0 Asymptomatic menopausal state
CPT/HCPCS: 77080

== ENCOUNTER → 2023-12-28 07:02 | Outpatient (CLI) | payer OTHER, SELFPAY ==
--- NOTE | 2023-12-28 07:04 | DI.MG.S_ITS ---
BILATERAL DIGITAL SCREENING MAMMOGRAM 3D/2D WITH CAD: 12/28/2023 CLINICAL: Routine screening. Comparison is made to exams dated: 12/20/2022 mammogram, 12/17/2021 mammogram, and 12/09/2020 mammogram - [facility]. There are scattered areas of fibroglandular density (category b / 25%-50% glandular tissue). Current study was also evaluated with a Computer Aided Detection (CAD) system. No significant masses, calcifications, or other findings are seen in either breast. There has been no significant interval change. IMPRESSION: NEGATIVE There is no mammographic evidence of malignancy. A 1 year screening mammogram is recommended. Based on the Tyrer Cuzick model (a risk assessment model) the patient's lifetime risk is 9.0% and her 10 year risk is 4.2%. According to the ACR, ACS, and NCCN guidelines, an annual breast MRI exam along with mammogram is recommended if the patient's lifetime risk is 20% or greater. This exam was interpreted at Station ID: [id number]. NOTE: For mammograms, a report in lay terms will be sent to the patient. Approximately 15% of breast malignancies will not be visualized mammographically. In the management of a palpable breast mass, a negative mammogram must not discourage biopsy of a clinically suspicious lesion. Electronically Signed By: Silviano ramirez/estee:12/28/2023 08:56:22 letter sent: Normal Exam ACR BI-RADS Category 1: Negative
[2023-12-28 08:43] LABS: Hemoglobin A1C% w Est Avg Glu 6.2 % (4.0-6.0)
[2023-12-28 08:49] LABS: Add Manual Diff / Slide Review NO; Basophils Absolute Auto 100 /uL (0-100); Basophils Percent Auto 1.4 % (0-2); Eosinophils Absolute Auto 100 /uL (0-450); Eosinophils Percent Auto 1.8 % (2-4); Hematocrit 42.5 % (36-46); Hemoglobin 14.2 g/dL (12.0-16.0); Lymphocytes Absolute Auto 1400 /uL (1100-4500); Lymphocytes Percent Auto 35.6 % (25-40); Mean Corpuscular HGB Conc 33.3 % (30-36); Mean Corpuscular Volume 89.9 fL (80-100); Monocytes Absolute Auto 300 /uL (0-900); Neutrophils Absolute Auto 2100 /uL (1500-7000); Neutrophils Percent Auto 53.2 % (50-75); Platelet Count 286 X10^3/uL (150-400); Red Blood Cell Count 4.73 X10^6/uL (4.0-5.2); Red Cell Distribution Width 13.7 % (11.6-14.8)
[2023-12-28 09:01] LABS: Alanine Aminotransferase 20 IU/L (<35); Albumin 3.8 g/dL (3.5-5.0); Albumin Globulin Ratio 1.5 (1.0-2.8); Alkaline Phosphatase 86 U/L (38-126); Aspartate Aminotransferase 28 IU/L (14-36); BUN Creatinine Ratio 16.3 (6-22); Bilirubin Total 0.6 mg/dL (0.2-1.3); Blood Urea Nitrogen 17 mg/dL (7-17); Calcium 9.1 mg/dL (8.4-10.2); Carbon Dioxide 27 mmol/L (22-32); Chloride 102 mmol/L (98-107); Cholesterol 188 mg/dL (140-199); Estimated Glomerular Filt Rate > 60 mL/min (>60); Globulin 2.6 g/dL (1.7-4.1); Glucose 121 mg/dL (80-110); HDL Cholesterol 88 mg/dL (40-60); HEMOLYSIS < 15 (0-50); LDL Cholesterol Calculated 80 mg/dL (<100); Potassium 4.2 mmol/L (3.4-5.1); Sodium 134 mmol/L (137-145); Total Protein 6.4 g/dL (6.3-8.2); Triglycerides 98 mg/dL (35-150)
[2023-12-28 09:25] LABS: TSH w/ Reflex to FT4 1.46 uIU/mL (0.47-4.68)
[2023-12-28 10:30] LABS: Creatinine Urine Random 157.46 mg/dL
== END ==
LOC: MAMMO 07:03
PROVIDERS: Family Provider Internal Medicine; PCP Family Medicine; Referring Provider Family Medicine; Visit Provider Family Medicine
DX: Z12.31 Encounter for screening mammogram for malignant neoplasm of breast (principal); E78.2 Mixed hyperlipidemia; E11.9 Type 2 diabetes mellitus without complications; E03.9 Hypothyroidism, unspecified
CPT/HCPCS: 36415; 77063; 77067; 80053; 80061; 82043; 82570; 83036; 84443; 85025

== ENCOUNTER → 2023-12-30 16:52 | Outpatient (CLI) | payer OTHER, SELFPAY ==
--- NOTE | 2023-12-30 16:54 | DI.RAD.S_ITS ---
PROCEDURE: XR FOOT RT MIN 3V INDICATIONS: foot pain TECHNIQUE: 3 views of the foot were acquired. COMPARISON: None. FINDINGS: Bones: No fractures or dislocations. Hallux valgus deformity. Bunion formation. Moderate degenerative changes at the 1st TMT joint. Plantar calcaneal spur. No suspicious bony lesions. Soft tissues: No tibiotalar joint effusion. Achilles tendon appears normal. IMPRESSION: No acute bony abnormality. Hallux valgus deformity. Bunion formation. Moderate degenerative changes. Dictated by: Marcello Regalado M.D. on 01/01/2024 at 22:20 Approved by: Marcello Regalado M.D. on 01/01/2024 at 22:24
== END ==
PROVIDERS: Family Provider Internal Medicine; PCP Family Medicine; Referring Provider Family Medicine; Visit Provider Family Medicine
DX: M20.11 Hallux valgus (acquired), right foot (principal); M21.611 Bunion of right foot; M77.31 Calcaneal spur, right foot; M79.671 Pain in right foot
CPT/HCPCS: 73630

== ENCOUNTER → 2024-04-21 11:04 | Outpatient (CLI) | payer OTHER, SELFPAY | PROVIDERS: Family Provider Internal Medicine; PCP Family Medicine; Referring Provider Family Medicine; Visit Provider Family Medicine | DX: T61.781A Other shellfish poisoning, accidental (unintentional), initial encounter (principal) | CPT/HCPCS: 36415; 86003 ==

== ENCOUNTER → 2024-12-22 07:47 | Outpatient (CLI) | payer OTHER, SELFPAY ==
[2024-12-22 09:08] LABS: Add Manual Diff / Slide Review NO; Hematocrit 41.5 % (36-46); Hemoglobin 13.8 g/dL (12.0-16.0); Lymphocytes Absolute Auto 1600 /uL (1100-4500); Mean Corpuscular HGB Conc 33.2 % (30-36); Mean Corpuscular Hemoglobin 29.7 PG (26-34); Mean Corpuscular Volume 89.5 fL (80-100); Platelet Count 245 X10^3/uL (150-400)
[2024-12-22 09:43] LABS: Alanine Aminotransferase 19 IU/L (<35); Albumin 3.9 g/dL (3.5-5.0); Albumin Globulin Ratio 1.6 (1.0-2.8); Alkaline Phosphatase 89 U/L (38-126); Blood Urea Nitrogen 16 mg/dL (7-17); Calcium 9.0 mg/dL (8.4-10.2); Carbon Dioxide 27 mmol/L (22-32); Chloride 103 mmol/L (98-107); Cholesterol 191 mg/dL (140-199); Estimated Glomerular Filt Rate > 60 mL/min (>60); Globulin 2.5 g/dL (1.7-4.1); Glucose 102 mg/dL (70-99); HDL Cholesterol 76 mg/dL (40-60); HEMOLYSIS < 15 (0-50); Potassium 4.9 mmol/L (3.4-5.1); Sodium 136 mmol/L (137-145); Total Protein 6.4 g/dL (6.3-8.2); Triglycerides 108 mg/dL (35-150)
[2024-12-22 10:12] LABS: TSH w/ Reflex to FT4 1.70 uIU/mL (0.47-4.68)
== END ==
PROVIDERS: Family Provider Internal Medicine; PCP Family Medicine; Referring Provider Family Medicine; Visit Provider Family Medicine
DX: E11.9 Type 2 diabetes mellitus without complications (principal); E78.5 Hyperlipidemia, unspecified; E03.9 Hypothyroidism, unspecified
CPT/HCPCS: 36415; 80053; 80061; 84443; 85025

== ENCOUNTER → 2025-01-05 07:38 | Outpatient (CLI) | payer OTHER, SELFPAY ==
--- NOTE | 2025-01-05 07:41 | DI.MG.S_ITS ---
MM screening mammo BI: 01/05/2025. BI-RADS: 1 CLINICAL: 64-year old female for bilateral screening mammogram. Tyrer-Cuzick lifetime risk of 11.5%. No personal or first-degree family history of breast cancer. PRIOR EXAMS 12/28/2023, 12/20/2022, 12/17/2021, 12/09/2020. MAMMOGRAPHY TECHNIQUE: 2D and 3D (tomosynthesis) digital mammographic views obtained, with additional images as needed for full coverage. Current study was also evaluated with a Computer Aided Detection (CAD) system. DENSITY B. There are scattered areas of fibroglandular density. MAMMOGRAPHY FINDINGS Bilateral: No suspicious mass, asymmetry, microcalcification, or other abnormality seen. IMPRESSION: * No evidence of malignancy. RECOMMENDATIONS Bilateral * Annual screening mammography. OVERALL ASSESSMENT CATEGORY BI-RADS-1: Negative. The [employer] recommends annual screening mammography beginning at age 40 for women with average risk of breast cancer. ELECTRONICALLY SIGNED: Silviano Carter M.D. on 01/07/2025 at 08:53:36 AM PT Interpreting Station ID: [id number]
== END ==
PROVIDERS: PCP Family Medicine; Referring Provider Family Medicine; Visit Provider Family Medicine
DX: Z12.31 Encounter for screening mammogram for malignant neoplasm of breast (principal)
CPT/HCPCS: 77063; 77067